=== PATIENT | female | born 1995 ===

== ENCOUNTER 2023-04-22 14:33 | Outpatient (REF) | payer MEDICAID, OTHER, SELFPAY ==
[2023-04-22 16:17] LABS: Estimated Average Glucose 74 mg/dL; Hemoglobin A1c % 4.2 % (<6.0)
[2023-04-22 16:34] LABS: Alanine Aminotransferase 14 U/L (0-31); Albumin Level 4.7 g/dL (3.5-5.0); Alkaline Phosphatase 47 U/L (39-117); Anion Gap 12 (12-20); Aspartate Amino Transferase 18 U/L (5-31); Bilirubin Total 0.6 mg/dL (0.0-1.0); Blood Urea Nitrogen 11 mg/dL (9-16); Calcium 10.5 mg/dL (8.4-10.2); Carbon Dioxide 26 mmol/L (22-29); Chloride 104 mmol/L (96-108); Estimated Glomerular Filt Rate > 60; Glucose Random 83 mg/dL (60-115); Potassium 4.3 mmol/L (3.3-5.1); Sodium 138 mmol/L (135-145); Total Protein 8.6 g/dL (6.5-8.0)
[2023-04-23 04:40] LABS: ~HepC Num1 0.18 S/CO (0.00-0.79); ~Hepatitis C Antibody Nonreactive (Nonreactive)
== END 2023-04-22 14:34 | disposition home or self-care (01) ==
LOC: HO.HHCL 14:33
PROVIDERS: Visit Provider General Practice
DX: Z00.00 Encounter for general adult medical examination without abnormal findings (principal); Z13.1 Encounter for screening for diabetes mellitus; Z11.59 Encounter for screening for other viral diseases
CPT/HCPCS: 36415; 80053; 83036; 86803

== ENCOUNTER 2023-08-03 17:47 | Outpatient (REF) | payer MEDICAID, OTHER, SELFPAY ==
[2023-08-04 02:13] LABS: CT PCR DETECTED (Not Detect.); NG PCR NOT DETECTED (Not Detect.)
[2023-08-04 10:39] LABS: Bacterial Vaginosis PCR POSITIVE (Negative); Candida Group PCR NOT DETECTED (Not Detect); Candida glab krusei PCR NOT DETECTED (Not Detect); Trichomonas vaginalis PCR NOT DETECTED (Not Detect)
== END 2023-08-03 17:48 | disposition home or self-care (01) ==
LOC: HO.HHCLNP 17:47
PROVIDERS: Visit Provider General Practice
DX: Z12.4 Encounter for screening for malignant neoplasm of cervix (principal)
CPT/HCPCS: 0352U; 0353U; 36415; 88175

== ENCOUNTER 2023-08-11 12:46 | Outpatient (REF) | payer MEDICAID, OTHER, SELFPAY ==
[2023-08-15 03:28] LABS: HPV 16 RNA NOT DETECTED (NOT DETECTED); HPV mRNA E6/E7 rflx Detected (Not Detected)
== END 2023-08-11 12:47 | disposition home or self-care (01) ==
LOC: HO.LNP 12:46
PROVIDERS: Visit Provider General Practice
DX: R87.610 Atypical squamous cells of undetermined significance on cytologic smear of cervix (ASC-US) (principal)
CPT/HCPCS: 87624; 87625

== ENCOUNTER 2024-10-24 16:29 | Outpatient (REF) | payer BC, SELFPAY ==
--- OUTSIDE RECORDS SUMMARY | 2024-10-24 14:00 | XMS_ITS | Encounter Summary ---
Author Organization [employer] Address [address] [facility] 7t [place] [address] Care Team Providers Care Telephone Services Sales Representative Name Role Phone Alix Smart MD Primary Care Provider [phone] Reason for Visit * Reason Comments Follow-up Encounter Details Date Type Department Care Team ([facility] st Contact Info) Description 10/24/2024 2:00 PM EDT Office Visit [facility] [address] [place], [place] [phone] Alix Smart MD [address] [place], [place] [phone] Vaginal discharge (Primary Dx) Social History Tobacco Use Types Packs/Day Years Used Date Smoking Tobacco: Never Passive Smoke Exposure: Never Smokeless Tobacco: Never Alcohol Use Standard Drinks/Week Comments Never 0 (1 standard drink = 0.6 oz pur e alcohol) Alcohol Answer Date Recorded Frequency of Alcohol Consumption Not on file 04/22/2023 Average Number of Drinks Not on file 024 Frequency of Binge Drinking Not on file 04/09 Score 0 04/22/2023 Depression Answer Date Recorded Patient Health Questionnaire-9 Score 10/24/2024 Patient Health Questionnaire-9 Score 13 10/24/2024 Last PHQ-9: Questionnaire Data Not on file 0 10/24/2024 Housing Stability Answer Date Recorded What is your housing situation today? I have lissette sing [address] you li ve. Do you have problems with any of the following? None of the above 2024 Food Insecurity Answer Date Recorded Within the past 12 months, y ou worried that your food would run out before you got money to buy more: Never True 2024 Within the past 12 months,th e food you bought just didn't last and you didn't have enough money to get more: Never True 06/2024 Transportation Answer Date Recorded In the past 12 months, has l ack of transportation kept you from medical appts, meetings, work or from getting things needed for daily living? No 2024 Utilities Answer Date Recorded In the past 12 months, has t he electric, gas, oil or water company threatened to shut off services in your home? No 2024 Depression Answer Date Recorded Patient Health Questionnaire-2 Score 5 10/24/2024 Internet Access Answer Date Recorded Internet Access Q1 Yes 2024 Internet Access Q2 Not on file 2024 Comments No Sex and Gender Information Value Date Recorded Sex Assigned at Female 2022 10:12 AM EDT Legal Sex Female 11:35 AM EDT Gender Identity Female 2022 10:12 AM EDT Sexual Orientation Straight 2022 10 :12 AM EDT documented as of this encounter Last Filed Vital Signs Vital Sign Reading Time Taken Comments Blood Pressure 100/60 10/24/2024 2:01 PM EDT Pulse 78 10/24/2024 2:01 PM EDT Temperature 37.3 C (99.1 F) 10/24/2024 2:01 PM EDT Respiratory Rate 18 10/24/2024 2:01 PM EDT Oxygen Saturation - - Inhaled Oxygen Concentration - - Weight 57.5 kg (126 lb 12.8 oz) 10/24/2024 2:01 PM EDT Height 157.5 cm (5' 2 ) 10/24/2024 2:01 PM EDT Body Mass Index 23.19 10/24/2024 2:01 PM EDT documented in this encounter Functional Status * Over the past 2 weeks, how often have you been bothered by any of the following problems? Question Answer Date of Assessment Author Patient Health Questionnaire -2 Score 5 10/24/2024 2:27 PM EDT Luann Jean Baptiste MA * Little interest or pleasure in doing things Answer Date of Assessment Author More than half the days 10/24/2024 2:27 PM EDT Luann Plascencia MA * Feeling down, depressed, or hopeless Answer Date of Assessment Author Nearly every day 10/24/2024 2:27 PM EDT Luann Jean Baptiste MA * Trouble falling or staying asleep, or sleeping too much Answer Date of Assessment Author More than half the days 10/24/2024 2:27 PM EDT Luann Plascencia MA * Feeling tired or having little energy Answer Date of Assessment Author More than half the days 10/24/2024 2:27 PM EDT Luann Plascencia MA * Poor appetite or overeating Answer Date of Assessment Author Nearly every day 10/24/2024 2:27 PM EDT Luann Jean Baptiste MA * Feeling bad about yourself - or that you are a failure or have let yourself or your family down Answer Date of Assessment Author Several days 10/24/2024 2:27 PM Luann Marin MA * Trouble concentrating on things, such as reading the newspaper or watching television Answer Date of Assessment Author Not at all 10/24/2024 2:27 PM FRANCOIST Luann Jean Baptiste MA * Moving or speaking so slowly that other people could have noticed? Or the opposite - being so fidgety or restless that you have been moving around a lot more than usual. Answer Date of Assessment Author Not at all 10/24/2024 2:27 PM Luann Marin MA * Thoughts that you would be better off or hurting yourself in some way Answer Date of Assessment Author Not at all 10/24/2024 2:27 PM Luann Marin MA * Patient Health Questionnaire-9 Score Answer Date of Assessment Author 13 10/24/2024 2:27 PM Luann Marin MA * How difficult have these problems made it for you to do your work, take care of things at home, or get along with other people? Answer Date of Assessment Author Somewhat difficult 10/24/2024 2:27 PM Luann Murray MA * Over the last 2 weeks, how often have you been bothered by any of the following problems? Question Answer Date of Assessment Author Feeling nervous, anxious, or on edge 3 10/24/2024 2:28 PM FRANCOIST Luann Jean Baptiste MA Not being able to stop or co ntrol worrying 1 10/24/2024 2:28 PM EDT Luann Jean Baptiste MA Worrying too much about diff erent things 2 10/24/2024 2:28 PM EDT Luann Jean Baptiste MA Trouble relaxing 3 10/24/2024 2:28 PM EDT C Luann murphy MA Being so restless that it is hard to sit still 0 10/24/2024 2:28 PM EDT Luann Jean Baptiste MA Becoming easily annoyed or irritable 3 10/24/2024 2:28 PM EDT Luann Jean Baptiste MA Feeling afraid as if somethi ng awful might happen 2 10/24/2024 2:28 PM EDT Luann Jean Baptiste MA JARED-7 Total Score 14 10/24/2024 2:28 PM EDT Luann Jean Baptiste MA documented as of this encounter Plan of Treatment Upcoming Encounters Date Type Department Care Team ([facility] st Contact Info) Description 11/29/2024 10:00 AM EDT Office Visit [facility] [address] [place] [address] Dennis Hartman MD [address] [place] [address] Scheduled Orders Name Type Priority Associated Diagnoses Orde r Schedule Bacterial Vaginosis Panel Microbiology Routine Vaginal discharge Ordered: 10/24/2024 documented as of this encounter Procedures Procedure Name Priority Date/Time Associated Diagnosis Comments CHLAMYDIA/N. GONORRHOEAE RNA, TMA, UROGENITAL Routine 10/24/2024 2:32 PM EDT Vaginal discharge documented in this encounter Results * Chlamydia/N. Gonorrhoeae RNA, TMA, Vaginal (10/24/2024 2:32 PM EDT) Pathologist [facility] CT PCR NOT DETECTED Not Detect. [facility] Comment:A not detected test result does not exclude the possibilityof infection because test results can be affected byimproper specimen collection, concurrent antibiotic therapy,or the number of organisms in the specimen which may bebelow the sensitivity of the test. As with many diagnostictests, results from the Xpert CT/NG assay should beinterpreted in conjunction with other laboratory andclinical data available to the clinician.Xpert CT/NG performance has not been evaluated in patientsless than 14 years of age. The assay should not be used forthe evaluationof suspected sexual abuse or for other medico-legalindications. Additional testing is recommended in anycircumstance when false positive or false negative resultscould lead to adverse medical, social or psychologicalconsequences. NG PCR NOT DETECTED Not Detect. [facility] Comment:A not detected test result does not exclude the possibilityof infection because test results can be affected byimproper specimen collection, concurrent antibiotic therapy,or the number of organisms in the specimen which may bebelow the sensitivity of the test. As with many diagnostictests, results from the Xpert CT/NG assay should beinterpreted in conjunction with other laboratory andclinical data available to the clinician.Xpert CT/NG performance has not been evaluated in patientsless than 14 years of age. The assay should not be used forthe evaluationof suspected sexual abuse or for other medico-legalindications. Additional testing is recommended in anycircumstance when false positive or false negative resultscould lead to adverse medical, social or psychologicalconsequences. Swab (Vaginal Swab) 10/24/2024 2:32 PM EDT 10/24/2024 4:30 PM EDT us Alix Smart MD LAB MICROBIOLOGY - GENERAL ORD ERABLES Final Result [facility] [address] [place] [phone] documented in this encounter Visit Diagnoses Diagnosis Vaginal discharge- Primary Leukorrhea, not specified as infective documented in this encounter Additional Health Concerns Assessment Noted Time PHQ-9 Depression Total Score: 13 025 2:27 PM EDT documented as of this encounter Care Teams Telephone Services Sales Representative Relationship Specialty Start Date End Date Alix Smart MD [address] [place] [phone] PCP - General Family Medicine 04/22/23 documented as of this encounter
[2024-10-24 21:16] LABS: CT PCR NOT DETECTED (Not Detect.); NG PCR NOT DETECTED (Not Detect.)
--- OUTSIDE RECORDS SUMMARY | 2024-10-24 21:30 | XMS_ITS | Encounter Summary ---
Author Organization [employer] Address [address] [place] [address] 7 [place] [address] Care Team Providers Care Junior Manufacturing Engineer Name Role Phone Alix Smart MD Primary Care Provider [phone] Reason for Referral * Consultation (Routine) - Closed Specialty Diagnoses / Procedures Referred By Contac t Referred To Contact Obstetrics and Gynecology Diagnoses ASCUS with positive high risk HPV cervical Alix Smart MD [address] [place] [address] Phone: tel: fax: [facility] [address] [place] [address] Phone: tel: fax: Referral ID Status Reason Start Date Expiration Date V isits Requested Visits Authorized [id number] Closed Specialty Services Required 08/18/2023 08/17/2024 1 1 Encounter Details Date Type Department Care Team (Late st Contact Info) Description 08/18/2023 Orders Only [facility] [address] [place], [place] [phone] Alix Smart MD [address] [place], [place] [phone] ASCUS with positive high risk HPV cervical (Primary Dx) Social History Tobacco Use Types [...] Answer Date Recorded Patient Health Questionnaire-9 Score 0 04/22/2023 Patient Health Questionnaire-9 Score 0 04/22/2023 Last PHQ-9: Questionnaire Data Not on file 0 04/22/2023 Housing Stability Answer Date Recorded What is your housing situation today? I have lissette donnelly 04/22/[address] you li ve. Do you have problems with any of the following? None of the above 04/22/2023 Food Insecurity Answer Date Recorded Within the past 12 months, y ou worried that your food would run out before you got money to buy more: Never True 04/22/2023 Within the past 12 months,th e food you bought just didn't last and you didn't have enough money to get more: Never True Transportation Answer Date Recorded In the past 12 months, has l ack of transportation kept you from medical appts, meetings, work or from getting things needed for daily living? Yes, it has kept me from medical appointments or getting medications. 04/22/2023 Utilities Answer Date Recorded In the past 12 months, has t he electric, gas, oil or water company threatened to shut off services in your home? No 04/22/2023 Depression Answer Date Recorded Patient Health Questionnaire-2 Score 0 04/22/2023 Comments No Sex and Gender Information Value Date Recorded Sex Assigned at Female 2022 10:12 AM EDT Legal Sex Female 11:35 AM EDT Gender Identity Female 2022 10:12 AM EDT Sexual Orientation Straight 2022 10 :12 AM EDT documented as of this encounter Plan of Treatment Upcoming Encounters Date Type Department Care Team (Late st Contact Info) Description 11/29/2024 10:00 AM EDT Office Visit [facility] [address] [place] [address] Dennis Hartman MD [address] [place] [address] Scheduled Referrals Name Type Priority Associated Diagnoses Order Schedule Referral to Obstetrics / Gynecology Outpatient Referral Routine ASCUS with positive high risk HPV cervical Expected: 08/18/2023 (Approximate), Expires: 08/17/2024 documented as of this encounter Visit Diagnoses Diagnosis ASCUS with positive high risk HPV cervical- Primary documented in this encounter Additional Health Concerns Assessment Noted Time PHQ-9 Depression Total Score: 0 04/22/19 24 2:18 PM EDT documented as of this encounter Care Teams Junior Manufacturing Engineer Relationship Specialty Start Date End Date Alix Smart MD [address] [place] [address] PCP - General Family Medicine 04/22/23 documented as of this encounter
--- OUTSIDE RECORDS SUMMARY | 2024-10-24 21:30 | XMS_ITS | Clinical Summary ---
Author Organization [employer] Address [address] [place] [address] 7t [place] [address] Care Team Providers Care Dining Room Attendant Cafeteria Name Role Phone Alix Smart MD Primary Care Provider [phone] Allergies Active Allergy Reactions Criticality Noted Date Comments Chocolate Hives 10/27/2022 Peanut-Containing Drug Products Hives 10/10 Medications Sodium Fluoride (PreviDent 5000 Booster Plus) 1.1 % paste Please use twice daily to brush your teeth. Spit, do not rinse. 112 g 1 3 Active levonorgestrel-eth inyl estradiol (Aviane, Alesse, Lessina) 0.1-20 MG-MCG tabletIndications: Encounter for general counseling on prescription of oral contraceptives TAKE 1 TABLET BY MOUTH ONCE DAILY IN THE MORNING 84 tablet 5 Active ketoconazole (NIZOral) 2 % shampoo Apply topically 2 (two) times a week. 120 mL 11 5 Active clobetasol (Temovate) 0.05 % ointment Apply topically 2 times daily. 30 g 3 5 Active diphenhydrAMINE (BENADryl) 25 MG tablet Take 1 tablet (25 mg) by mouth if needed at bedtime for itching. 30 tablet 3 5 Active Active Problems Problem Noted Date Diagnosed Date Chlamydia infection 08/11/2023 Assessment & Plan (08/11/2023 9:54 PM EDT): Doxy 100mg BID x 7 days EPT therapy provided No intercourse for one week during treatment Followup in 3 months for repeat testing Healthy adult on routine physical examination Encounter for general leroy calderón on prescription of oral contraceptives 04/22/2023 Assessment & Plan (04/22/2023 2:39 PM EDT): No personal history of HTN or migraines, FH of DVT No prior use of contraceptives Desires in about 2 years Encounters Date Type Department Care Team Description 10/24/2024 2:00 PM EDT Office Visit [address] [address] Alix Smart MD Vaginal discharge (Primary Dx) 10/23/2024 Travel 10/21/[address] [address] Alix Smart MD chart prep 2024 Patient Outreach [address] [address] Alix Smart MD Pre-visit Planning (SDOH Screening negative and Tobacco screening negative) 09/21/[address] [address] Alix Smart MD Appointment Request 09/05/2024 9:40 AM EDT Office Visit [facility] [address] [place] [phone] Dayana Kang MD Tinea capitis (Primary Dx) 09/05/2024 Travel 08/31/[address] [address] Alix Smart MD Nurse Triage 08/22/2024 Telephone [facility] [address] [place] [address] Alix Smart MD Care Coordination 08/15/[address] [address] Alix Smart MD Other 08/11/[address] [address] Alix Smart MD chart prep 08/11/[address] [address] Alix Smart MD Insurance 08/05/2024 Patient Outreach [facility] [address] [place] [address] Alix Smart MD Pre-visit Planning ([facility] unable to reach LVM ) 08/04/2024 Refill [facility] [address] [place] [address] Alix Smart MD Encounter for general counseling on prescription of oral contraceptives; Chlamydia; Bacterial vaginosis from Last 3 Months Social History Tobacco Use Types Packs/Day Years Used Date Smoking Tobacco: Never Passive Smoke Exposure: Never Smokeless Tobacco: Never Tobacco Cessation:Counseling Given: Not Answered Alcohol Use Standard Drinks/Week Comments Never 0 (1 standard drink = 0.6 oz pur e alcohol) Alcohol Answer Date Recorded Frequency of Alcohol Consumption Not on file 04/22/2023 Average Number of Drinks Not on file 024 Frequency of Binge Drinking Not on file 04/09 Score 0 04/22/2023 Depression Answer Date Recorded Patient Health Questionnaire-9 Score 13 10/24/2024 Patient Health Questionnaire-9 Score 13 10/24/2024 Last PHQ-9: Questionnaire Data Not on file 0 10/24/2024 Housing Stability Answer Date Recorded What is your housing situation today? I have lissette donnelly [address] you li [...] Orientation Straight 2022 10 :12 AM EDT Last Filed Vital Signs Vital Sign Reading Time Taken Comments Blood Pressure 100/60 10/24/2024 2:01 PM EDT Pulse 78 10/24/2024 2:01 PM EDT Temperature 37.3 C (99.1 F) 10/24/2024 2:01 PM EDT Respiratory Rate 18 10/24/2024 2:01 PM EDT Oxygen Saturation 99% 09/05/2024 9:45 AM EDT Inhaled Oxygen Concentration - - Weight 57.5 kg (126 lb 12.8 oz) 10/24/2024 2:01 PM EDT Height 157.5 cm (5' 2 ) 10/24/2024 2:01 PM EDT Body Mass Index 23.19 10/24/2024 2:01 PM EDT Plan of Treatment Upcoming Encounters Date Type Department Care Team (Late st Contact Info) Description 11/29/2024 10:00 AM EDT Office Visit [facility] [address] [place] [address] Dennis Hartman MD [address] [place] [address] Health Maintenance Due Date Last Done Comments HIV Screening 1996 Disability Screening 1996 Alcohol/Substance Use Screening 2008 Family Planning (PISQ) 10/15/2011 HPV Vaccines (1 - 3-dose series) 10/15/2011 DTaP/Tdap/Td Vaccines (1 - Tdap) 10/15/2015 Hepatitis B Vaccines (1 of 3 - 19+ 3-dose series) 10/15/2015 Colposcopy 12/03/2023 Dental Oral Exam 09/21/2024 03/23/2024, 01/09/2023 Dental Prophylaxis 09/21/2024 03/23/2024, 01/09/2023 COVID-19 Vaccine ( - 2023-2 5 season) 2024 Influenza Vaccine (#1) 2024 Dental X-Ray: Bitewings 03/24/2025 03/23/19 25, 01/09/2023 Depression Monitoring 04/23/2025 10/24/2024 , 10/24/2024 SDOH Screening 2025 2024 Tobacco Screening 10/24/2025 10/24/2024 Dental X-Ray: Full Mouth 01/10/2026 01/09/2023 Pap Smear 08/02/2026 08/03/2023 Zoster Vaccines (1 of 2) 2046 RSV Patients and Patients Aged 60 years or older (1 - 1-dose 75+ series) 10/15/2071 Hepatitis C Screening Completed 04/22/2023 HIB Vaccines Aged Out No longer eligi ble based on patient's age to complete this topic Hepatitis A Vaccines Aged Out No long er eligible based on patient's age to complete this topic IPV Vaccines Aged Out No longer eligi ble based on patient's age to complete this topic Meningococcal B Vaccine Aged Out No l onger eligible based on patient's age to complete this topic Meningococcal Vaccine Aged Out No ailyn balaji eligible based on patient's age to complete this topic Pneumococcal Vaccine: Pediatrics (0 to 5 Years) and At-Risk Patients (6 to 49) Years Aged Out No longer eligible b ased on patient's age to complete this topic RSV under 20 months Aged Out No longe r eligible based on patient's age to complete this topic Rotavirus Vaccines Aged Out No longer eligible based on patient's age to complete this topic Procedures Procedure Name Priority Date/Time Associated Diagnosis Comments CHLAMYDIA/N. GONORRHOEAE RNA, TMA, UROGENITAL Routine 10/24/2024 2:32 PM EDT Vaginal discharge Full PROPHYLAXIS - ADULT Routine 03/23/2024 2:00 PM EST BITEWINGS - 4 RADIOGRAPHIC IMAGES Routine 03/23/2024 2:00 PM EST PERIODIC ORAL EVALUATION - ESTABLISHED PATIENT Routine 03/23/2024 2:00 PM EST THINPREP IMAGING SYSTEM PAP Routine 08/03/2023 12:00 AM EDT HEPATITIS C ANTIBODY Routine 04/22/2023 2:34 PM EDT Healthy adult on routine physical examination INTRAORAL - COMPLETE SERIES OF RADIOGRAPHIC IMAGES Routine 01/09/2023 10:00 AM EST from Last 3 Months or Most Recently Relevant to Health Maintenance Results * Chlamydia/N. Gonorrhoeae RNA, TMA, Vaginal (10/24/2024 2:32 PM EDT) CT PCR NOT DETECTED Not Detect. [facility] Comment:A not detected test result [...] psychologicalconsequences. NG PCR NOT DETECTED Not Detect. [facility] Comment:A not detected test result [...] MICROBIOLOGY - GENERAL ORD ERABLES Final Result [facility] [address] [place] [address] [phone] * (ABNORMAL) ThinPrep Imaging System Pap (08/03/2023 12:00 AM EDT) SOURCE: SEE NOTE [facility] Comment:Cervix Report Status: [facility] Clinical Information: SEE NOTE [facility] Comment:26Y G0 LMP: SEE NOTE [facility] Comment:NONE GIVEN Prev. PAP: SEE NOTE [facility] Comment:NONE GIVEN Prev. BX: SEE NOTE [facility] Comment:NONE GIVEN Statement Of Adequacy: SEE NOTE [facility] Comment:Satisfactory for pawan luation.Endocervical/transformation zone componentpresent. General Categorization: SEE NOTE(A) [facility] Comment:Cytology Results: Ep ithelial Cell Abnormality Interpretation/Result: SEE NOTE(A) [facility] Comment:Atypical Squamous Ce lls of UndeterminedSignificance (ASC-US) Cytology Comment SEE NOTE [facility] Comment:This Pap test has be en evaluated with computerassisted technology. Instrument And Electrical Technician: SEE NOTE [facility] Comment:SXA, CT(ASCP)CT scre ening location: [address] [address] Review Instrument And Electrical Technician: [facility] Pathologist SEE NOTE [facility] Comment:Jeffy Edmonds M.D.,Mike castellanos Certified in Anatomic and Clinical Pathology(electronic signature)Consulting PathologistChanning Home Pathology[address] [place] [address] [phone] PAP Infection [facility] See Note SEE NOTE [facility] Comment:EXPLANATORY NOTE:The Pap is a screening test for cervical cancer. It isnot a diagnostic test and is subject to false negativeand false positive results. It is most reliable when asatisfactory sample, regularly obtained, is submittedwith relevant clinical findings and history, and whenthe Pap result is evaluated along with historic andcurrent clinical information.THIS TEST WAS PERFORMED AT:[facility] [address] [id number] VELAZQUEZ MD 08/03/2023 08/03/2023 Narrative [facility] - 08/11/2023 12:03 PM EDT SEE SCANNED RESULTS IN [id number] Alix Smart MD LAB PATHOLOGY ORDERABLES Final Result Performing Organization Address [facility]/ZIP Co de Phone Number [facility] [address] [place] [address] [phone] * Hepatitis C Ab (04/22/2023 2:34 PM EDT) Hepatitis C Antibody Nonreactive Nonreactive [facility] Comment:Antibodies to HCV no t detected; does not exclude early acuteHCV infection. Blood Venous blood specimen / Unknown 04/22/2023 2:34 PM EDT 04/22/2023 4:08 PM EDT Alix Smart MD LAB BLOOD ORDERABLES Final Res ult Performing Organization Address City/[facility]/ZIP Co de Phone Number [facility] [address] [place] [address] [phone] from Last 3 Months or Most Recently Relevant to Health Maintenance Insurance [facility] P[employer] Care Teams Dining Room Attendant Cafeteria Relationship Specialty Start Date End Date Alix Smart MD [address] [place] [phone] PCP - General Family Medicine 04/22/23
--- OUTSIDE RECORDS SUMMARY | 2024-10-24 21:30 | XMS_ITS | Encounter Summary ---
Author Organization [employer] Address [address] [facility] 7t [place] [address] Care Team Providers Care Assembler Carbon Brushes Name Role Phone Alix Smart MD Primary Care Provider [phone] Reason for Visit * Reason Onset Date Comments Appointment Request 09/21/2024 Encounter Details Date Type Department Care Team ([facility] st Contact Info) Description 09/21/2024 Telephone [facility] MEDICINE [address] [place], [place] [phone] Alix Smart MD [address] [place], [place] [phone] Appointment Request Social History Tobacco Use Types Packs/Day Years [...] AM EDT documented as of this encounter Miscellaneous Notes * Telephone Encounter - Ewa Bustamante - 09/21/2024 2:20 PM EDT Tc from pt requesting a call back for DERM appt Please contact pt at [phone] Need repair cameraman documented in this encounter Plan of Treatment Upcoming Encounters Date Type Department Care Team (Late st Contact Info) Description 11/29/2024 10:00 AM EDT Office Visit [facility] MED & PEDS [address] [place] [address] Dennis Hartman MD [address] [place] [address] documented as of this encounter Visit Diagnoses Not on filedocumented in this encounter Additional Health Concerns Assessment Noted Time PHQ-9 Depression Total Score: 0 04/22/19 2:18 PM EDT documented as of this encounter Care Teams Assembler Carbon Brushes Relationship Specialty Start Date End Date Alix Smart MD [address] [place] [address] PCP - General Family Medicine 04/22/23 documented as of this encounter
--- OUTSIDE RECORDS SUMMARY | 2024-10-24 21:30 | XMS_ITS | Encounter Summary ---
Author Organization [employer] Address [address] [facility] 7t [place] [address] Care Team Providers Care Greenhouse Florist Name Role Phone Alix Smart MD Primary Care Provider [phone] Reason for Visit * Reason Onset Date Comments chart prep 10/21/2024 Encounter Details Date Type Department Care Team ([facility] st Contact Info) Description 10/21/2024 Telephone [facility] MEDICINE [address] [place], [place] [phone] Alix Smart MD [address] [place], [place] [phone] chart prep Social History Tobacco Use Types Packs/Day Years [...] Recorded Patient Health Questionnaire-2 Score 0 04/22/2023 Internet Access Answer Date Recorded Internet Access [...] encounter Miscellaneous Notes * Telephone Encounter - Luann Jean Baptiste [place] - 10/21/2024 11:52 AM EDT Chart Prep Labs: not applicable Images: not applicable Referrals: appointment pending Vaccines due: Covid, Flu, Hep B, HPV, and DTAP Screenings: colonoscopy Overdue care gaps: SBIRT, PHQ-9, and JARED-7 documented in this encounter Plan of Treatment Upcoming Encounters Date Type Department Care Team (Late st Contact Info) Description 11/29/2024 10:00 AM EDT Office Visit [facility] MED & PEDS [address] [place] [address] Dennis Hartman MD [address] [place] [address] documented as of this encounter Visit Diagnoses Not on filedocumented in this encounter Additional Health Concerns Assessment Noted Time PHQ-9 Depression Total Score: 0 04/22/19 24 2:18 PM EDT documented as of this encounter Care Teams Greenhouse Florist Relationship Specialty Start Date End Date Alix Smart MD [address] [place] [address] PCP - General Family Medicine 04/22/23 documented as of this encounter
--- OUTSIDE RECORDS SUMMARY | 2024-10-24 21:30 | XMS_ITS | Encounter Summary ---
Author Organization [employer] Address [address] [facility] 7t [place] [address] Care Team Providers Care Translator Interpreter Name Role Phone Alix Smart MD Primary Care Provider [phone] Encounter Details Date Type Department Care Team (Latest Contact Info) Description 10/23/2024 Travel Social History Tobacco Use Types Packs/Day Years [...] is your housing situation today? I have lissettezack donnelly [address] you [...] t he electric, gas, oil or water [employer] threatened to shut off services in your [...] Description 11/29/2024 10:00 AM EDT Office Visit [facility] MED & PEDS [address] [place] [address] Dennis Hartman MD [address] [place] [address] documented as of this encounter Visit Diagnoses Not on filedocumented in this encounter Additional Health Concerns Assessment Noted Time PHQ-9 Depression Total Score: 0 04/22/19 24 2:18 PM EDT documented as of this encounter Care Teams Translator Interpreter Relationship Specialty Start Date End Date Alix Smart MD [address] [place] [id number] PCP - General Family Medicine 04/22/23 documented as of this encounter
[2024-10-24 23:23] LABS: Bacterial Vaginosis PCR POSITIVE (Negative); Candida Group PCR NOT DETECTED (Not Detect); Candida glab krusei PCR NOT DETECTED (Not Detect); Trichomonas vaginalis PCR NOT DETECTED (Not Detect)
== END 2024-10-24 16:30 | disposition home or self-care (01) ==
LOC: HO.HHCLNP 16:29
PROVIDERS: Visit Provider General Practice
DX: N89.8 Other specified noninflammatory disorders of vagina (principal); Z11.3 Encounter for screening for infections with a predominantly sexual mode of transmission; Z11.8 Encounter for screening for other infectious and parasitic diseases
CPT/HCPCS: 81515; 87491; 87591

== ENCOUNTER 2024-11-29 11:47 | Outpatient (REF) | payer BC, SELFPAY ==
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
[2024-11-29 14:48] LABS: MANUAL DIFF FLAG NO
[2024-11-29 14:54] LABS: Hematocrit 38.8 % (37.0-47.0); Hemoglobin 13.3 g/dl (12.0-16.0); Imm Gran Abs Auto 0.01 X10*3/uL (0.00-0.03); Imm Gran Pct Auto 0.2 % (0.0-0.4); Lymphocytes Absolute Auto 1.1 X10*3/uL (1.2-4.9); Mean Corpuscular HGB Conc 34.3 g/dl (31.0-35.0); Mean Corpuscular Hemoglobin 30.4 pg (27.0-33.0); Mean Corpuscular Volume 88.8 fL (80.0-98.0); NRBC Abs Auto 0.000 X10*3/uL (0.0-0.012); NRBC Pct Auto 0.0 /100WBC (0.0-0.2); Platelet Count 309 X10*3/uL (160-400); Red Blood Count 4.37 X10*6/uL (4.20-5.50); White Blood Count 4.4 X10*3/uL (4.8-10.8)
--- OUTSIDE RECORDS SUMMARY | 2024-11-29 15:15 | XMS_ITS | Encounter Summary ---
Author Organization [employer] [place] [facility] Address [address] [facility] 7t [place] [address] Care Team Providers Care Process Development Associate Name Role Phone Alix Smart MD Primary Care Provider [phone] Reason for Referral * Consultation (Routine) - Closed Specialty Diagnoses / Procedures Referred By Matthieu kyle Referred To Contact Obstetrics and Gynecology Diagnoses ASCUS with positive high risk HPV cervical Alix Smart MD [address] [place] [address] Phone: tel: fax: [facility] [address] [place] [address] Phone: tel: fax: Referral ID Status Reason Start Date Expiration Date V isits Requested Visits Authorized [id number] Closed Specialty Services Required 08/18/2023 08/17/2024 1 1 Encounter Details Date Type Department Care Team (Late st Contact Info) Description 08/18/2023 Orders Only [facility] [address] [place], [place] [phone] Alix Smart MD [address] [place], [place] [phone] ASCUS with positive high risk HPV cervical [...] Description 12/05/2024 8:45 AM EDT Office Visit [facility] [address] [place] [address] Gustavo Hartman Scheduled Referrals Name Type Priority Associated Diagnoses [...] documented as of this encounter Care Teams Process Development Associate Relationship Specialty Start Date End Date Alix Smart MD [address] [place] [address] PCP - General Family Medicine 04/22/23 documented as of this encounter
--- OUTSIDE RECORDS SUMMARY | 2024-11-29 15:15 | XMS_ITS | Encounter Summary ---
Author Organization [employer] Address [address] [facility] [address] [place] [address] Care Team Providers Care Corporate Associate Name Role Phone Alix Smart MD Primary Care Provider [phone] Encounter Details Date Type Department Care Team (Latest Contact Info) Description 11/29/2024 Travel Social History Tobacco Use Types Packs/Day [...] your housing situation today? I have lissette cony [address] you li [...] t he electric, gas, oil or water [employer] threatened to shut off services in your [...] 12/05/2024 8:45 AM EDT Office Visit [facility] [address] [place] [address] Gustavo Hartman documented as of this encounter Visit Diagnoses Not on filedocumented in this encounter Additional Health Concerns Assessment Noted Time PHQ-9 Depression Total Score: 13 025 2:27 PM EDT documented as of this encounter Care Teams Corporate Associate Relationship Specialty Start Date End Date Alix Smart MD [address] [place] [phone] PCP - General Family Medicine 04/22/23 documented as of this encounter
--- OUTSIDE RECORDS SUMMARY | 2024-11-29 15:15 | XMS_ITS | Clinical Summary ---
Author Organization [employer] Address [address] [place] [address] [address] [place] [address] Care Team Providers Care Home Economics Expert Name Role Phone Alix Smart MD Primary Care Provider [phone] Allergies Active Allergy Reactions Criticality Noted Date Comments Chocolate Hives 10/27/2022 Peanut-Containing Drug Products Hives 10/10 Medications Sodium Fluoride (PreviDent 5000 Booster Plus) 1.1 % paste Please use twice daily to brush your teeth. Spit, do not rinse. 112 g 1 01/23/20 23 Active ketoconazole (NIZOral) 2 % shampoo Apply topically 2 (two) times a week. 120 mL 11 09/06/19 25 Active clobetasol (Temovate) 0.05 % ointment Apply topically 2 times daily. 30 g 3 09/06/19 25 Active diphenhydrAMINE (BENADryl) 25 MG tablet Take 1 tablet (25 mg) by mouth if needed at bedtime for itching. 30 tablet 3 09/06/19 25 Active Minoxidil (ROGAINE EXTRA STRENGTH) 5 % solutionIndication s:Telogen effluvium To apply to the scalp Once a day 120 mL 2 11/30/19 25 Active levonorgestrel-eth inyl estradiol (Aviane, Alesse, Lessina) 0.1-20 MG-MCG tabletIndications: Encounter for general counseling on prescription of oral contraceptives TAKE 1 TABLET BY MOUTH ONCE DAILY IN THE MORNING 84 tablet 08/05/19 25 025 Discontinu ed( ) metroNIDAZOLE (Flagyl) 500 MG tabletIndications: Bacterial vaginosis Take 1 tablet (500 mg) by mouth 2 times daily for 7 days. 14 tablet 10/27/19 25 025 Active Problems Problem Noted Date Diagnosed Date Atypical squamous cell lozada es of undetermined significance (ASCUS) on cervical cytology with positive high risk human papilloma virus (HPV) 10/26/2024 Overview (10/26/2024): 08/2023 ASCUS pap with + HPV Colposcopy referral sent 08/2023 Assessment & Plan (10/26/2024 10:21 AM EDT): Referral for colposcopy resent 10/26/24 Bacterial vaginosis 10/26/2024 Chlamydia infection 08/11/2023 Assessment & Plan (08/11/2023 [...] Encounters Date Type Department Care Team Description 11/29/2024 10:00 AM EDT Office Visit [facility] [address] [place] [address] Dennis Hartman MD Telogen effluvium (Primary Dx) 11/29/2024 Travel 10/26/[address] [phone] Alix Smart MD Results; Care Coordination 10/24/2024 2:00 PM EDT Office Visit [address] [address] Alix Smart MD Vaginal discharge (Primary Dx); Bacterial vaginosis; Atypical squamous cell changes of undetermined significance (ASCUS) on cervical cytology with positive high risk human papilloma virus (HPV) 10/23/2024 Travel 10/21/[address] [phone] Alix Smart MD chart prep 2024 Patient Outreach [facility] [address] [place] [phone] Alix Smart MD Pre-visit Planning (SDOH Screening negative and Tobacco screening negative) 09/21/2024 Telephone [facility] [address] [place] [phone] Alix Smart MD Appointment Request 09/05/2024 9:40 AM EDT Office Visit [facility] [address] [place] [phone] Dayana Kang MD Tinchoco cristine (Primary Dx) 09/05/2024 Travel 08/31/2024 Telephone [facility] [address] [place] [phone] Alix Smart MD Nurse Triage from Last 3 Months Social History Tobacco [...] Q2 Not on file 2024 Comments No Intention Date Recorded No desire to become (finding) 0 10/24/2024 Sex and Gender Information Value Date Recorded Sex Assigned at Female 2022 10:12 AM EDT Legal Sex Female 11:35 AM EDT Gender Identity Female 2022 10:12 AM EDT Sexual Orientation Straight 2022 10 :12 AM EDT Last Filed Vital Signs Vital Sign Reading Time Taken Comments Blood Pressure 126/65 11/29/2024 10:31 AM EDT Pulse 82 11/29/2024 10:31 AM EDT Temperature 37.3 C (99.1 F) 10/24/2024 2:01 PM EDT Respiratory Rate 20 11/29/2024 10:31 AM EDT Oxygen Saturation 99% 11/29/2024 10:31 AM EDT Inhaled Oxygen Concentration - - Weight 57.2 kg (126 lb) 11/29/2024 10:31 AM EDT Height 157.5 cm (5' 2 ) 11/29/2024 10:31 AM EDT Body Mass Index 23.05 11/29/2024 10:31 AM EDT Plan of Treatment Upcoming Encounters Date Type Department Care Team (Late st Contact Info) Description 12/05/2024 8:45 AM EDT Office Visit [facility] [address] [place] [address] Gustavo Hartman Health Maintenance Due Date Last Done Comments HIV Screening 1996 Disability Screening 1996 Alcohol/Substance Use Screening 2008 HPV Vaccines (1 - 3-dose series) 10/15/2011 DTaP/Tdap/Td Vaccines (1 - Tdap) 10/15/2015 Hepatitis B Vaccines (1 of 3 - 19+ 3-dose series) 10/15/2015 Colposcopy 12/03/2023 Dental Oral Exam 09/21/2024 03/23/2024, 01/09/2023 Dental Prophylaxis 09/21/2024 03/23/2024, 01/09/2023 COVID-19 Vaccine (1 - 2023-2 5 season) 2024 Influenza Vaccine (#1) 2024 Dental X-Ray: Bitewings 03/24/2025 03/23/19, 01/09/2023 Depression Monitoring 04/23/2025 10/24/2024 , 10/24/2024 SDOH Screening 2025 2024 Family Planning (PISQ) 10/26/2025 10/26/2024 Tobacco Screening 11/29/2025 11/29/2024 Dental X-Ray: Full Mouth 01/10/2026 01/09/2023 Pap [...] Routine 11/29/2024 11:52 AM EDT Telogen effluvium CHLAMYDIA/N. GONORRHOEAE RNA, TMA, UROGENITAL Routine 10/24/2024 2:32 PM EDT Vaginal discharge BACTERIAL VAGINOSIS PANEL Routine 10/24/2024 2:32 PM EDT Vaginal discharge [...] Recently Relevant to Health Maintenance Results * (ABNORMAL) CBC auto differential (11/29/2024 11:52 AM EDT) White Blood Count 4.4(L) 4.8 - 10.8 X10*3/uL [facility] Red Blood Count 4.37 4.20 - 5.50 X10*6/uL [facility] Hemoglobin 13.3 12.0 - 16.0 g/dl [facility] Hematocrit 38.8 37.0 - 47.0 % [facility] Mean Corpuscular Volume 88.8 80.0 - 98.[address] [facility] Mean Corpuscular Hemoglobin 30.4 27.0 - 33.[address] [facility] Mean Corpuscular HGB Conc 34.3 31.0 - 35.0 g/dl [facility] Red Cell Distribution Width 11.4 11.0 - 16.0 % [facility] Platelet Count 309 160 - 400 X10*3/uL [facility] Mean Platelet Volume 10.7 9.4 - 12.[address] [facility] Neutrophils Percent Auto 60.0 45 - 73 % [facility] Imm Gran Pct Auto 0.2 0.0 - 0.4 % [facility] Lymphocytes Percent Auto 26.2 20 - 40 % [facility] Monocytes Percent Auto 11.3(H) 2 - 11 % [facility] Eosinophils Percent Auto 1.4 0 - 4 % [facility] Basophils Percent Auto 0.9 0 - 2 % [facility] NRBC Pct Auto 0.0 0.0 - 0.2 /100WBC [facility] Neutrophils Absolute Auto 2.6 2.0 - 8.3 x10*3/uL [facility] Imm Gran Abs Auto 0.01 0.00 - 0.03 X10*3/uL [facility] Lymphocytes Absolute Auto 1.1(L) 1.2 - 4.9 X10*3/uL [facility] Monocytes Absolute Auto 0.5 0.1 - 1.2 X10*3/uL [facility] Eosinophils Absolute Auto 0.1 0.0 - 0.4 X10*3/uL [facility] Basophils Absolute Auto 0.0 0.0 - 0.2 X10*3/uL [facility] NRBC Abs Auto 0.000 0.0 - 0.012 X10*3/uL [facility] Blood Venous blood specimen / Unknown 11/29/2024 11:52 AM EDT 11/29/2024 2:44 PM EDT us Dennis [place]man MD LAB BLOOD ORDERABLES Final Result [facility] [address] [place] [phone] * (ABNORMAL) Bacterial Vaginosis Panel (10/24/2024 2:32 PM EDT) TRICHOMONAS VAGINALIS DETECTION BY PCR NOT DETECTED Not Detect [facility] BACTERIAL VAGINOSIS DETECTION BY PCR POSITIVE(A) Negative [facility] Comment:The BV organism targ ets of the Xpert Xpress MVP test can becommensal in women; Xpert Xpress MVP positive results forbacterial vaginosis should be considered in conjunction withother clinical and patient information to determine thedisease status. Organisms that are not detected by the XpertXpress MVP test have also been reported to be associatedwith BV and aerobic vaginitis.The Xpert Xpress MVP test performance has not been evaluatedin patients under the age of 14. RAISA GROUP DETECTION BY PCR NOT DETECTED Not Detect [facility] Raisa glab krusei PCR NOT DETECTED Not Detect [facility] Swab Vaginal structure / Unknown 10/24/2024 2:32 PM EDT 10/24/2024 4:30 PM EDT us Alix Smart MD LAB MICROBIOLOGY - GENERAL ORD ERABLES Final Result [facility] [address] [place] [phone] [phone] * Chlamydia/N. Gonorrhoeae RNA, TMA, Vaginal (10/24/2024 2:32 PM EDT) CT PCR NOT DETECTED Not Detect. [facility] Comment:A not detected test result [...] psychologicalconsequences. NG PCR NOT DETECTED Not Detect. [facility] Comment:A not detected test result [...] MICROBIOLOGY - GENERAL ORD ERABLES Final Result [facility] [address] [place] [phone] * (ABNORMAL) ThinPrep Imaging System Pap (08/03/2023 12:00 AM EDT) SOURCE: SEE NOTE [facility] Comment:Cervix Report Status: [facility] Clinical Information: SEE NOTE [facility] Comment:27Y G0 LMP: SEE NOTE [facility] Comment:NONE GIVEN Prev. PAP: SEE NOTE [facility] Comment:NONE GIVEN Prev. BX: SEE NOTE [facility] Comment:NONE GIVEN Statement Of Adequacy: SEE NOTE [facility] Comment:Satisfactory for pawan luation.Endocervical/transformation zone componentpresent. General Categorization: SEE NOTE(A) [facility] Comment:Cytology Results: Ep ithelial Cell Abnormality Interpretation/Result: SEE NOTE(A) [facility] Comment:Atypical Squamous Ce lls of UndeterminedSignificance (ASC-US) Cytology Comment SEE NOTE [facility] Comment:This Pap test has be en evaluated with computerassisted technology. Teasel Setter: SEE NOTE [facility] Comment:SXA, CT(ASCP)CT scre ening location: [place] [address] Review Teasel Setter: [facility] Pathologist SEE NOTE [facility] Comment:Jeffy Edmonds M.D.,Mike castellanos Certified in Anatomic and Clinical Pathology(electronic signature)Consulting [facility] [place] [address] [phone] PAP Infection TNP [facility] See Note SEE NOTE [facility] Comment:EXPLANATORY NOTE:The Pap is a screening test for cervical cancer. It isnot a diagnostic test and is subject to false negativeand false positive results. It is most reliable when asatisfactory sample, regularly obtained, is submittedwith relevant clinical findings and history, and whenthe Pap result is evaluated along with historic andcurrent clinical information.THIS TEST WAS PERFORMED AT:[facility] [place] [phone] VELAZQUEZ MD 08/03/2023 08/03/[address] [facility] - 08/11/2023 12:03 PM EDT SEE SCANNED RESULTS IN [id number] Alix Samrt MD LAB PATHOLOGY ORDERABLES Final Result Performing Organization Address [facility] Co de Phone Number [facility] [address] [place] [phone] * Hepatitis C Ab (04/22/2023 2:34 PM EDT) Hepatitis C Antibody Nonreactive Nonreactive [facility] Comment:Antibodies to HCV no t detected; does not exclude early acuteHCV infection. Blood Venous blood specimen / Unknown 04/22/2023 2:34 PM EDT 04/22/2023 4:08 PM EDT Alix Smart MD LAB BLOOD ORDERABLES Final Res ult Performing Organization Address [facility] Co de Phone Number [facility] [address] [place] [address] [phone] from Last 3 Months or Most Recently Relevant to Health Maintenance Insurance BS PPO Care Teams Home Economics Expert Relationship Specialty Start Date End Date Alix Smart MD [address] [place] [phone] PCP - General Family Medicine 04/22/23
[2024-11-29 17:44] LABS: Ferritin 33 ng/mL (10-122)
[2024-11-29 18:13] LABS: Anion Gap 8 (12-20)
[2024-11-29 18:18] LABS: Alanine Aminotransferase 12 U/L (0-31); Albumin Level 4.2 g/dL (3.5-5.0); Alkaline Phosphatase 45 U/L (39-117); Aspartate Amino Transferase 21 U/L (5-31); Blood Urea Nitrogen 10 mg/dL (9-16); Calcium 9.0 mg/dL (8.4-10.2); Carbon Dioxide 26 mmol/L (22-29); Chloride 111 mmol/L (96-108); Estimated Glomerular Filt Rate > 60; Potassium 3.9 mmol/L (3.3-5.1); Sodium 141 mmol/L (135-145); Total Protein 7.2 g/dL (6.5-8.0)
== END 2024-11-29 11:48 | disposition home or self-care (01) ==
LOC: HO.CHCLDS 11:47
PROVIDERS: Visit Provider Internal Medicine
DX: L65.0 Telogen effluvium (principal)
CPT/HCPCS: 36415; 80048; 80076; 82306; 82728; 84443; 85025

== ENCOUNTER 2024-12-05 11:49 | Emergency (ER) | payer BC, SELFPAY ==
--- NOTE | ~2024-12-05 | CT_ITS ---
EXAMINATION: CT HEAD WITHOUT CONTRAST CLINICAL INFORMATION: Dizziness COMPARISON: None available. TECHNIQUE: Contiguous axial imaging was performed from the skull base to vertex without intravenous administration of contrast. This CT examination was performed using dose optimization techniques as appropriate, variously including the following: *Automated exposure control *Adjustment of mA and/or kV according to patient size (this includes techniques or standardized protocols for targeted exams where dose is matched to indication/reason for exam; i.e. extremities or head) *Use of iterative reconstruction technique FINDINGS: There is no acute ischemic change. There is no intracranial hemorrhage. There is no mass-effect or midline shift. Basal cisterns and ventricles are within normal limits for age/cerebral volume. Orbits are symmetrical and unremarkable. Paranasal sinuses and mastoid air cells are pneumatized. There are no bony abnormalities. CT/CT head/brain wo IV con IMPRESSION: No acute intracranial abnormality. Electronically signed by: Den Marks MD 12/05/2024 02:11 PM EDT RP
[2024-12-05 11:56] VITALS: BP 126/67; PULSE 102; RESP 16; TEMP 36.7; O2SAT 98; BMI 23.9
--- NOTE | 2024-12-05 12:01 | ED.GENADULT ---
[facility] - General Adult General Chief complaint: Headache Stated complaint: Dizziness Headache Time Seen by Provider: 12/05/24 12:49 Source: patient and board writer Mode of arrival: ambulatory Limitations: no limitations History of Present Illness ED Provider: [facility] narrative: Otherwise healthy 29-year-old woman not on control pills, presenting with she reports neck pain, on the right side with right-sided pain radiating from the neck along the right part of her scalp and face, reports double vision, slight sensitivity, vomited yesterday but no nausea right now, no weakness in upper or lower extremities, no abnormalities in the gait, no ear pain, nasal discharge or sore throat reported, no weakness in upper or lower extremities no sensory deficits in upper or lower extremities. No weight loss no headaches waking her up from sleep. No inflammation of the lymph nodes throughout the body noted. Related Data Allergies Allergy/AdvReac Type Severity Reaction Status Date / Time No Known Allergies Allergy Verified 12/05/24 11:57 Review of Systems Constitutional: Constitutional: Reports as per [facility] Social History Social History Advance Directives: No Advance Directives Information Provided: No Physical Exam ED Exam Exam: General: ?Appears of stated age ? ?PERRLA vision intact grossly at bedside, EOMI, MMM, no inflammation of the TMs, no tenderness along the temporal aspect, reports scalp tenderness on the right side ? Neck: Supple, no LAD, suboccipital tenderness in the right side ? ?CV: RRR, no obvious murmurs appreciated ? ?Resp: ?No wheezing rales rhonchi no stridor moving air well ? Abd: ?Bowel sounds are present, no tenderness no rebound no rigidity ? ?MSK: FROM, strength 5/5 all extremities ? Skin: Warm, dry, intact, ? ?Neuro: ?Alert and oriented x3, moving upper and lower extremities symmetrically, no obvious facial asymmetry noted, cranial nerves 2-12 intact, no dysmetria noted upper or lower extremities, I did not appreciate nystagmus horizontal vertical or rotary Vital Signs: Vital Signs - 24 hr 12/05/24 11:56 Temperature 98.1 F Pulse Rate 102 H Respiratory Rate 16 Blood Pressure 126/67 Pulse Oximetry 98 Oxygen Delivery Method Room Air BMI result Body Mass Index 23.9 Course Course Course Narrative: Rapid medical examination performed in triage by Joan Reynoso, PA-C. Patient is a 29 year old assigned female at presenting to the emergency department with headache / blurry vision x several days. Detailed physical exam and review of systems are deferred to the director of primary care. Labs and swabs ordered. Patient placed back in the waiting room pending room availability and results. Medications Administered Discontinued Medications Generic Name Dose Route Start Last Admin Trade Name Cassy PRN Reason Stop Dose Admin Lidocaine HCl 10 ml 12/05/24 13:19 12/05/24 13:30 Lidocaine Hcl 1 % 20 Ml Vial INFILTRATI 12/05/24 13:20 10 ml ONCE ONE Administration Meclizine HCl 25 mg 12/05/24 13:19 12/05/24 13:30 Meclizine Hcl 25 Mg Tablet PO 12/05/24 13:20 25 mg ONCE ONE Administration Scopolamine 1.5 mg 12/05/24 13:19 12/05/24 13:30 Scopolamine 1.5 Mg Patch.Td.3 EAR-BEHIND 12/05/24 13:20 1.5 mg ONCE ONE Administration Procedures Procedure Narrative Procedure Narrative: CPT 01183: ?1 or 2 muscle groups injected single or multiple trigger points Time-out: A time-out was performed to confirm the correct patient, procedure, site, and consent. Technique: The patient was placed in a [supine/prone/sitting] position. The skin overlying the trigger points was cleansed with [alcohol prep pad]. The trigger points were palpated and marked. Stabilization and Injection: The provider stabilized the muscle tissue by pinching the trigger point between their fingers. Using [21-gauge, 1.5-inch needle], the medication was injected with a fanning motion into the affected muscles. Medication: A solution of ?[ 7 mL of 1% lidocaine ] was injected. Muscles Injected: A total of [ 2] muscles were injected on the [right] side, including the: Right suboccipital area rectus capitis posterior minor and major 3 points altogether Post-Procedure: Patient Response: The patient tolerated the procedure well and reported [immediate/ significant/none] improvement in their pain. Follow-up: The injection sites were cleaned, and a bandage was applied. The patient was instructed to [apply ice for 15 minutes as needed] and advised on potential post-injection soreness. Assessment and Plan: The injection was successful, resulting in ?decreased pain and improved range of motion. Follow-up will be scheduled as needed. Medical Decision Making Medical Decision Making [facility] Narrative: 1:23 PM 12/05/2024 (Dr. Kemar Dobbs): I did not elicit risk factors for cavernous venous thrombosis, she is not I we will obtain CT to evaluate for any obvious masses unlikely, no evidence for central causes such as cerebellar stroke, this was not a sudden onset of headache to suspect subarachnoid hemorrhage, she had suboccipital tenderness and right-sided scalp tenderness this is more consistent with occipital neuralgia, verbal consent for lidocaine injections to the area obtained, she has never been diagnosed with migraine headache, possibly tension headache, reports double vision without obvious pupillary deficits or deficits in the extraocular movements and vision intact at bedside she is able to see an follow my digit during examination No risk factors for temporal arteritis or acute angle closure glaucoma 2:52 PM 12/05/2024 (Dr. Kemar Dobbs): Patient re-evaluated, she was already feeling better with Toradol and meclizine, CT negative, injection was performed without any complications Differential Diagnosis Differential Diagnoses: The differential diagnosis associated with the presentation includes (Subarachnoid hemorrhage, cavernous venous thrombosis, acute angle closure glaucoma, temporal arteritis, meningitis, migraine headache, tension headache) Admission/Observation Consideration of admission/observation: Escalation of care including admission/observation considered Lab Data [facility] Lab Attestation statement: I reviewed the patient's lab results. 12/05/24 12:26 12/05/24 12:26 Labs: Lab Results 12/05/24 Range/Units 12:26 WBC 4.7 L (4.8-10.8) X10*3/uL RBC 4.38 (4.20-5.50) X10*6/uL Hgb 13.2 (12.0-16.0) g/dl Hct 37.9 (37.0-47.0) % MCV 86.5 (80.0-98.0) fL MCH 30.1 (27.0-33.0) pg MCHC 34.8 (31.0-35.0) g/dl RDW 11.2 (11.0-16.0) % Plt Count 334 (160-400) X10*3/uL MPV 9.6 (9.4-12.3) fL Immature Gran % (Auto) 0.2 (0.0-0.4) % Neut % (Auto) 69.5 (45-73) % Lymph % (Auto) 19.7 L (20-40) % [place] % (Auto) 8.5 (2-11) % Eos % (Auto) 1.5 (0-4) % Baso % (Auto) 0.6 (0-2) % Lymph # (Auto) 0.9 L (1.2-4.9) X10*3/uL [place] # (Auto) 0.4 (0.1-1.2) X10*3/uL Eos # (Auto) 0.1 (0.0-0.4) X10*3/uL Baso # (Auto) 0.0 (0.0-0.2) X10*3/uL Abs Immat Gran (auto) 0.01 (0.00-0.03) X10*3/uL Absolute Neuts (auto) 3.3 (2.0-8.3) x10*3/uL Absolute Nucleated RBC 0.000 (0.0-0.012) X10*3/uL Nucleated RBC % (auto) 0.0 (0.0-0.2) /100WBC Sodium 140 (135-145) mmol/L Potassium 4.8 D (3.3-5.1) mmol/L Chloride 111 H (96-108) mmol/L Carbon Dioxide 21 L (22-29) mmol/L Anion Gap 13 (12-20) BUN 10 (9-16) mg/dL Creatinine 0.74 (0.5-1.4) mg/dL Estim Creat Clear Calc 92.7 Estimated GFR > 60 Random Glucose 76 (60-115) mg/dL Calcium 9.6 D (8.4-10.2) mg/dL Magnesium 2.0 (1.6-2.6) mg/dL Total Bilirubin 0.6 (0.0-1.0) mg/dL AST 32 H (5-31) U/L ALT 17 (0-31) U/L Alkaline Phosphatase 48 (39-117) U/L Total Protein 8.3 H (6.5-8.0) g/dL Albumin 4.5 (3.5-5.0) g/dL Beta HCG, Quant 3 mIU/mL COVID-19 ([facility]) Negative (Negative) COVID-19 Clin Com See Note Influenza Type A ([facility]) Negative (Negative) Influenza Type B ([facility]) Negative (Negative) Influenza A & B Note See Note Radiology Impression Discussion of test interpretation with radiology: I have reviewed the radiologist's reading. ( CT/CT head/brain wo IV con IMPRESSION: No acute intracranial abnormality.) Prescription Management I considered prescription management with: Pain Medication Discharge Plan Discharge Clinical Impression: Cervico-occipital neuralgia of right side Patient Disposition: Home, Self-Care Additional Instructions: CAT scan unremarkable, blood work reassuring, based on my physical examination you likely have occipital neuralgia, lidocaine injection performed I am hoping that is going to take care of the spasm and pain in the area and we will resolve the sensitivity of the scalp that your experiencing. Continue using ibuprofen 400 mg every 6 hours around the clock for the next 2 days, and take Tylenol 975 mg every 6 hours for additional pain control. Follow up with the primary care physician, any worsening issues concerns come back to the ER, please ice the area for the rest of the day that I injected, it may be sore. Referrals: Alix Smart MD [Primary Care Provider, Internal Medicine] - 1 week Clinical Impression: Cervico-occipital neuralgia of right side Print Language: Belarusian
[2024-12-05 12:40] LABS: MANUAL DIFF FLAG NO
[2024-12-05 12:43] LABS: Hematocrit 37.9 % (37.0-47.0); Hemoglobin 13.2 g/dl (12.0-16.0); Imm Gran Abs Auto 0.01 X10*3/uL (0.00-0.03); Imm Gran Pct Auto 0.2 % (0.0-0.4); Lymphocytes Absolute Auto 0.9 X10*3/uL (1.2-4.9); Mean Corpuscular HGB Conc 34.8 g/dl (31.0-35.0); Mean Corpuscular Hemoglobin 30.1 pg (27.0-33.0); Mean Corpuscular Volume 86.5 fL (80.0-98.0); NRBC Abs Auto 0.000 X10*3/uL (0.0-0.012); NRBC Pct Auto 0.0 /100WBC (0.0-0.2); Platelet Count 334 X10*3/uL (160-400); Red Blood Count 4.38 X10*6/uL (4.20-5.50); White Blood Count 4.7 X10*3/uL (4.8-10.8)
[2024-12-05 12:57] LABS: COVID-19 Test Negative (Negative); IDNOW Serial# 58CA691E
[2024-12-05 12:58] LABS: Alanine Aminotransferase 17 U/L (0-31); Albumin Level 4.5 g/dL (3.5-5.0); Alkaline Phosphatase 48 U/L (39-117); Anion Gap 13 (12-20); Aspartate Amino Transferase 32 U/L (5-31); Blood Urea Nitrogen 10 mg/dL (9-16); Calcium 9.6 mg/dL (8.4-10.2); Carbon Dioxide 21 mmol/L (22-29); Chloride 111 mmol/L (96-108); Creatinine Clr Calc Pharmacy 92.7; Estimated Glomerular Filt Rate > 60; IDNOW Serial# 55D5AD1C; Influenza B2 Negative (Negative); Magnesium 2.0 mg/dL (1.6-2.6); Potassium 4.8 mmol/L (3.3-5.1); Sodium 140 mmol/L (135-145); Total Protein 8.3 g/dL (6.5-8.0)
[2024-12-05] MEDS: Lidocaine HCl 1 % 20 ML VIAL 10 ML INFILTRATI (13:30)
[2024-12-05 15:18] VITALS: BP 126/67; PULSE 102; RESP 16; TEMP 36.7; O2SAT 98
== END 2024-12-05 15:21 | disposition home or self-care (01) ==
PROVIDERS: Physician Assistant Medical; Emergency Provider Emergency Medicine; PCP General Practice
DX: M54.81 Occipital neuralgia (principal); R42 Dizziness and giddiness; M54.2 Cervicalgia; R51.9 Headache, unspecified; H53.2 Diplopia; R11.10 Vomiting, unspecified; H53.8 Other visual disturbances; M79.7 Fibromyalgia; Z11.52 Encounter for screening for COVID-19; Z79.899 Other long term (current) drug therapy
CPT/HCPCS: 20552; 36415; 70450; 80053; 83735; 84702; 85025; 87502; 87635; 99283; 99284; J2003

== ENCOUNTER → 2024-12-05 13:19 | Outpatient (BNV) | payer BC, SELFPAY | PROVIDERS: Emergency Provider Emergency Medicine; PCP General Practice; Visit Provider Radiology Diagnostic Radiology | DX: R42 Dizziness and giddiness (principal) | CPT/HCPCS: 70450 ==

== ENCOUNTER 2025-01-02 10:48 | Outpatient (REF) | payer BC, SELFPAY | END 2025-01-02 10:49 | disposition home or self-care (01) | LOC: HO.HHCL 10:48 | PROVIDERS: PCP General Practice; Visit Provider General Practice | DX: N92.6 Irregular menstruation, unspecified (principal); Z32.00 Encounter for pregnancy test, result unknown | CPT/HCPCS: 36415; 84702 ==